=== PATIENT | female | born 1990 | race Caucasian/White ===

== ENCOUNTER 2018-02-27 07:29 | Day surgery (SDC) | payer OTHER ==
[2018-02-26 14:53] LABS: Specific Gravity <= 1.005 (1.005-1.030)
[2018-02-27 07:53] LABS: Specific Gravity 1.025 (1.005-1.030)
[2018-02-27] MEDS ORDERED: LIDOCAINE 2% MPF 5 ML VIAL ONE (08:24)
[2018-02-27] MEDS ORDERED: KETOROLAC 30 MG/ML INJ ONE (08:24)
[2018-02-27] MEDS ORDERED: PROPOFOL 200 MG/20 ML VIAL IV ONE (08:24)
[2018-02-27] MEDS ORDERED: MIDAZOLAM HCL 2 MG/2 ML INJ ONE (08:24)
[2018-02-27] MEDS ORDERED: ONDANSETRON HCL 40 MG/20 ML VIAL ONE (08:24)
[2018-02-27] MEDS ORDERED: FENTANYL CITR 100 MCG/2 ML ONE (08:24)
[2018-02-27] MEDS ORDERED: DEXAMETHASONE 10 MG/ML VIAL ONE (08:24)
[2018-02-27] MEDS ORDERED: CEFAZOLIN/SWI 1gm 1 GM/10 ML SYR ONE (08:28)
[2018-02-27] MEDS ORDERED: Ringers Lactate 1,000 ML IV ONE (08:28)
--- NOTE | 2018-02-27 21:45 | OP ---
Surgeon: Willem Collier MD Puzzle Assembler: Doug. Preoperative Diagnosis: Foreign body to the right middle finger. Postoperative Diagnosis: Foreign body to the right middle finger Procedure Performed: Excision of mass, simple closure. Anesthesia: General. Procedure In Detail: After satisfactory induction of general anesthesia, the right hand was prepped with Betadine scrub, Betadine paint, dry sterile drapes applied in the usual manner. The arm was maycol vated exsanguinated with an Esmarch, tourniquet was inflated to 250 mmHg. Hand placed on the [place] table. Incision was made over the middle portion of the middle phalanx, volar surface. Electrocaut genet was used for hemostasis. After the tourniquet was released, the tissue was sent for pathology. Wound was jet lavaged and irrigated with 3 L of the dilute Betadine solution and then after electroca utery was used and the wound closed with 4-0 Prolene simple sutures, half buried mattress. Dressed w ith Xeroform and 2-inch Jacek. The patient tolerated the procedure well and returned to recovery. HARJINDER/BARRY Voice ID: [id number] Report ID: [id number]
== END 2018-02-27 11:56 | disposition home or self-care (01) ==
LOC: OR 07:29
PROVIDERS: ATTEND Specialist
PROC: 0JBJ0ZZ Excision of Right Hand Subcutaneous Tissue and Fascia, Open Approach (ICD-10-PCS; principal; 2018-02-27 09:00)
DX: M60.241 Foreign body granuloma of soft tissue, not elsewhere classified, right hand (principal); Z18.89 Other specified retained foreign body fragments
CPT/HCPCS: 81025; 88304; 88305; J0690; J1100; J2250; J2405; J3010